=== PATIENT | male | born 1970 | race Caucasian/White ===

== ENCOUNTER 2022-01-03 04:52 | Inpatient (IN) ==
[2022-01-03 05:21] LABS: Hematocrit (blood only) 49.3 % (40.1-51.0); Hemoglobin 16.4 g/dl (14.0-18.0); Mean Corpuscular Hemoglobin 22.7 pg (25.0-34.0); Mean Corpuscular Hgb Conc 33.3 g/dL (32.0-36.0); Mean Corpuscular Volume 68.1 fL (80.0-100.0); RDW Coefficient of Variation 18.1 % (11.5-14.5); RDW Standard Deviation 37.8 fL (36.4-46.3); Red Blood Count 7.24 M/uL (4.63-6.08); White Blood Count 23.39 K/ul (4.8-10.8)
[2022-01-03] MEDS ORDERED: SODIUM CHLORIDE 0.9% 1000ML 1,000 ML IV ONE (05:26)
--- NOTE | 2022-01-03 05:26 | Emergency Department Note ---
History of Present Illness General Chief complaint: Abdominal Pain Stated complaint: LWR ABD PAIN, VOMITING Time Seen by Provider: 01/03/22 04:57 History of Present Illness Maximum Pain Intensity: 9 51-year-old male presents emergency department with a approximate 5-day history of intermittent lower quadrant suprapubic abdominal pain. Patient states that last evening the pain worsened in the left lower quadrant and the suprapubic region. Patient states that the pain was moderate nonradiating no associated nausea vomiting or diarrhea. No hematuria no urinary symptoms. Patient does have a remote history approximately 10 years ago of a perforated diverticular abscess with surgery and colostomy placement. Patient denies flank pain. Patient denies fever. There are no other mitigating or alleviating factors; patient is currently at [facility] for alcohol rehab and was supposed to be discharged today Home Medications Medication Instructions Recorded Confirmed Type acamprosate 333 mg tablet,delayed 666 mg PO TID 01/03/22 01/03/22 History release buprenorphine 8 mg-naloxone 2 mg 1 tab sublingual DAILY 01/03/22 01/03/22 History sublingual tablet buspirone 5 mg tablet 5 mg PO TID 01/03/22 01/03/22 History cyproheptadine 4 mg tablet 4 mg PO Q6H PRN Itching 01/03/22 01/03/22 History hydroxyzine HCl 50 mg tablet 50 mg PO Q6H PRN Itching 01/03/22 01/03/22 History loratadine 10 mg capsule 10 mg PO DAILY 01/03/22 01/03/22 History melatonin 10 mg tablet 10 mg PO HS PRN Sleep 01/03/22 01/03/22 History metoprolol succinate 50 mg 50 mg PO DAILY 01/03/22 01/03/22 History tablet,extended release 24 hr multivitamin 1 tab PO DAILY 01/03/22 01/03/22 History omeprazole 20 mg capsule,delayed 20 mg PO DAILY 01/03/22 01/03/22 History release Allergies Allergy/AdvReac Type Severity Reaction Status Date / Time No Known Allergies Allergy Unverified 01/03/22 10:29 Past Med/Surg History Medical History (Updated 01/03/22 @ 10:07 by Lisette Bowles PA-C) Alcohol abuse History of substance abuse MDD (major depressive disorder) Surgical History History of partial surgical removal of colon 2009 or 2011 Family History Other Hypertension Social History Smoking Status: Current every day smoker Tobacco Type: Cigarettes Second Hand Exposure: No; Do You Dip or Chew Tobacco: No; Tobacco Cessation Education Requested by Patient: No Hx Alcohol Use: Yes Alcohol type: beer, wine and hard liquor Hx Substance Use: Yes Last Used Substance Other:: more than a decade ago Preferred Language: Portuguese Communication Ability: Effective Bleach Boiler Puller Required: No Beliefs That Will Affect Care: None Current Living Situation: Alone Other Information That Helps Us Care for You: No Feels Safe at Home: Yes Assistive Devices: None Immunizations: Past medical history diverticulitis, past surgical history diverticular abscess and diverticulitis with perforation, colostomy Review of Systems A total of 10 systems reviewed and were otherwise negative Constitutional: no fever Respiratory: no cough Cardiovascular: no chest pain Gastrointestinal: + abdominal pain Genitourinary (Male): no dysuria Physical Exam Vital Signs Vital Signs - 24 hr 01/03/22 04:58 01/03/22 05:32 01/03/22 05:32 Temperature 36.8 C Temperature Source Temporal Artery Scan Pulse Rate 84 78 Pulse Rate [Apical] 77 Pulse Rate from SpO2 Sensor Respiratory Rate 18 18 Respiratory Effort / Characteristics Non-Labored Respiratory Depth Normal Blood Pressure 131/98 Blood Pressure [Left Arm] 141/107 H Blood Pressure Mean 109 Blood Pressure Mean [Left Arm] 118 Blood Pressure Position [Left Arm] Semi-fowlers Pulse Oximetry 100 100 100 Oxygen Delivery Method Room Air Room Air Room Air Sepsis Recent Fever Within 48 Hours No Sepsis New/Unexplained Change in Mental Status N/A Sepsis Action Taken by Nursing No Action Required 01/03/22 07:00 01/03/22 07:00 01/03/22 09:45 Temperature Temperature Source Pulse Rate 67 Pulse Rate [Apical] Pulse Rate from SpO2 Sensor Respiratory Rate 21 Respiratory Effort / Characteristics Respiratory Depth Blood Pressure 158/103 H 162/102 H Blood Pressure [Left Arm] Blood Pressure Mean 121 122 Blood Pressure Mean [Left Arm] Blood Pressure Position [Left Arm] Pulse Oximetry 98 Oxygen Delivery Method Room Air Sepsis Recent Fever Within 48 Hours Sepsis New/Unexplained Change in Mental Status Sepsis Action Taken by Nursing 01/03/22 09:45 01/03/22 10:00 01/03/22 10:00 Temperature Temperature Source Pulse Rate 67 Pulse Rate [Apical] Pulse Rate from SpO2 Sensor 76 Respiratory Rate 24 Respiratory Effort / Characteristics Respiratory Depth Blood Pressure 142/88 H Blood Pressure [Left Arm] Blood Pressure Mean 106 Blood Pressure Mean [Left Arm] Blood Pressure Position [Left Arm] Pulse Oximetry 98 98 Oxygen Delivery Method Room Air Room Air Sepsis Recent Fever Within 48 Hours Sepsis New/Unexplained Change in Mental Status Sepsis Action Taken by Nursing GENERAL: Patient is awake alert in no acute distress patient is resting comfortably and showing no signs of anxiety EYES: The conjunctivae are clear. The pupils are round and reactive. EARS, NOSE, MOUTH AND THROAT: The nose is without any evidence of any deformity. Mucous membranes are moist. Tongue is midline. NECK: The neck is nontender and supple. RESPIRATORY: Normal respiratory effort is noted there is no evidence of wheezing rhonchi or rales CARDIOVASCULAR: Regular rate and rhythm noted there no murmurs rubs or gallops normal S1 normal S2. GASTROINTESTINAL: The abdomen is soft. Abdomen is mildly tender in the suprapubic region no tenderness in the upper quadrants there is no rebound rigidity or guarding PELVIS: The Pelvis is stable. No tenderness to palpation is noted. BACK: No midline tenderness or or step-off noted range of motion in flexion e xtension as well as rotation no signs of muscle spasm noted MUSCULOSKELETAL/EXTREMITIES: There is no evidence of gross deformity full range of motion is noted in the hips and shoulders. SKIN: There is no obvious evidence of any rash. There are no petechiae, pallor or cyanosis noted. NEUROLOGIC: Patient is awake alert and oriented x3 strength is symmetric Course Reevaluation(s) Reevaluation #1: Repeat examination, the patient states that he has severe heartburn and abdominal pain. Patient denies significant chest pain however. Patient also states that he had [place] approximately 10 [place] [facility] [facility] Time: 05:39 Reevaluation #2: Resting in no distress Time: 06:21 Reevaluation #3: 700am - case turned over pending CT read and dispo to my colleague Dr Pheasant Time: 07:00 Administered Medications Diphenhydramine HCl (Diphenhydramine 50 Mg/Ml Vial) 25 mg IV HS PRN PRN Reason: insommia Stop: 02/02/22 18:41 Last Admin: 01/03/22 20:00 Dose: 25 mg Documented By: EW Sodium Chloride (Nss 1000ml) 1,000 mls @ 125 mls/hr IV .Q8H SARAH Stop: 02/02/22 13:52 Last Admin: 01/03/22 16:58 Dose: 125 mls/hr Documented By: MEMO Discontinued Medications Buprenorphine/Naloxone (Buprenorphine/Naloxone 8/2 Mg Tab) 1 tab SL ONE ONE Stop: 01/03/22 12:42 Last Admin: 01/03/22 13:00 Dose: 1 tab Documented By: ALVIN Famotidine (Famotidine 20mg/5ml Iv Push) Confirm Administered Dose 20 mg IV .STK-MED ONE Stop: 01/03/22 05:39 Last Admin: 01/03/22 05:41 Dose: Not Given Documented By: EVAN Fentanyl Citrate (Fentanyl Citrate 100 Mcg/2 Ml Vial) 50 mcg IV Q15M PRN PRN Reason: Pain Stop: 01/17/22 08:48 Last Admin: 01/03/22 09:45 Dose: 50 mcg Documented By: ALVIN Sodium Chloride (Nss 1000ml) 1,000 mls @ 999 mls/hr IV .Q1H1M ONE Stop: 01/03/22 06:26 Last Infusion: 01/03/22 06:42 Dose: 0 mls/hr Documented By: Admin: 01/03/22 05:41 Dose: 999 mls/hr Documented By: EVAN Famotidine 20 mg/ Syringe 5 mls @ 2.5 mls/min IV NOW ONE Stop: 01/03/22 05:38 Last Admin: 01/03/22 05:41 Dose: 2.5 mls/min Documented By: EVAN Sodium Chloride (Nss 1000ml) 1,000 mls @ 125 mls/hr IV .Q8H [facility] Stop: 02/02/22 08:44 Last Admin: 01/03/22 16:59 Dose: Not Given Documented By: Infusion: 01/03/22 16:27 Dose: 125 mls/hr Documented By: Admin: 01/03/22 08:46 Dose: 125 mls/hr Documented By: ALVIN Acetaminophen (Ofirmev) 1,000 mg in 100 mls @ 400 mls/hr IV NOW STA Stop: 01/03/22 08:51 Last Infusion: 01/03/22 09:01 Dose: 0 mls/hr Documented By: Admin: 01/03/22 08:46 Dose: 400 mls/hr Documented By: ALVIN Ketorolac Tromethamine (Ketorolac 30 Mg/Ml Vial) 30 mg IV NOW STA Stop: 01/03/22 05:38 Last Admin: 01/03/22 05:41 Dose: 30 mg Documented By: EVAN Lorazepam (Lorazepam 1 Mg/1 Ml Syr) 1 mg IV NOW ONE; Protocol Stop: 01/03/22 10:37 Last Admin: 01/03/22 11:04 Dose: 1 mg Documented By: ALVIN Lorazepam (Lorazepam 1 Mg/1 Ml Syr) 1 mg IV NOW STA; Protocol Stop: 01/03/22 12:42 Last Admin: 01/03/22 13:53 Dose: 1 mg Documented By: ALVIN Lorazepam (Lorazepam 1 Mg Tab) 0.25 mg SL NOW STA Stop: 01/03/22 20:49 Last Admin: 01/03/22 21:34 Dose: 0.25 mg Documented By: MYRON Nicotine (Nicotine 21 Mg/24 Hr Tdsy) Confirm Administered Dose 21 mg TD .STK-MED ONE Stop: 01/03/22 13:00 Last Admin: 01/03/22 13:02 Dose: 21 mg Documented By: ALVIN Ondansetron HCl (Ondansetron Inj 2 Mg/Ml 2 Ml Vial) 4 mg IV NOW STA Stop: 01/03/22 08:37 Last Admin: 01/03/22 08:45 Dose: 4 mg Documented By: ALVIN Medical Decision Making Medical Records Attestation: I reviewed the patient's medical records. Home Medications Current Medication List: was personally reviewed by me Laboratory Data Attestation: I reviewed the patient's lab results. Patient has leukocytosis concern is for inflammation or infection Result diagrams: 01/03/22 05:12 01/03/22 18:16 Lab Results 01/03/22 01/03/22 01/03/22 Range/Units 05:12 05:12 07:18 WBC 23.39 H (4.8-10.8) K/ul RBC 7.24 H (4.63-6.08) M/uL Hgb 16.4 (14.0-18.0) g/dl Hct 49.3 (40.1-51.0) % MCV 68.1 L (80.0-100.0) fL MCH 22.7 L (25.0-34.0) pg MCHC 33.3 (32.0-36.0) g/dL RDW Std Deviation 37.8 (36.4-46.3) fL RDW Coeff of Joey 18.1 H (11.5-14.5) % Plt Count 269 (130-400) K/uL Immature Gran % (Auto) 0.6 % Neut % (Auto) 87.7 % Lymph % (Auto) 8.4 % Wise % (Auto) 2.9 % Eos % (Auto) 0.1 % Baso % (Auto) 0.3 % Neut # (Auto) 20.51 H (1.4-6.5) K/uL Lymph # (Auto) 1.96 (1.2-3.4) K/uL Wise # (Auto) 0.69 (0.24-0.82) K/uL Eos # (Auto) 0.03 (0-0.50) K/uL Baso # (Auto) 0.07 (0-0.2) K/uL Immature Gran # (Auto) 0.13 H (0.00-0.02) K/uL Microcytosis Present Ovalocytes 2+ Echinocytes 1+ Sodium 137 (136-145) mmol/L Potassium 4.2 (3.5-5.1) mmol/L Chloride 96 L (98-107) mmol/L Carbon Dioxide 26 (21-32) mmol/L Anion Gap 15 H (3-11) BUN 20 (6-23) mg/dl Creatinine 1.40 (0.6-1.4) mg/dl Est Cr Clr Drug Dosing 61.7 ml/min Est GFR ( Amer) 66.5 ml/min Est GFR (Non-Af Amer) 57.4 ml/min BUN/Creatinine Ratio 14.3 (10-20) Glucose 155 H (70-99(Fasting)) mg/dl Calcium 11.8 H (8.5-10.1) mg/dl Total Bilirubin 1.0 (0.2-1.0) mg/dl AST 16 (13-39) U/L ALT 12 (7-52) U/L Alkaline Phosphatase 35 (34-104) U/L Total Protein 8.6 H (6.0-8.3) gm/dl Albumin 5.4 H (3.4-5.0) gm/dl Globulin 3.2 (2.5-4.0) gm/dl Albumin/Globulin Ratio 1.7 (0.9-2) Lipase 24 (11-82) U/L Urine Color Dark Yellow Urine Appearance Clear (Clear) Urine pH 5.5 (4.5-7.5) Ur Specific [place] 1.043 H (1.000-1.030) Urine Protein 1+ H (Negative) Urine Glucose (UA) Negative (Negative) Urine Ketones 1+ H (Negative) Urine Blood Negative (Negative) Urine Nitrite Negative (Negative) Urine Bilirubin 1+ H (Negative) Urine Urobilinogen Negative (Negative) Ur Leukocyte Esterase Trace H (Negative) Urine WBC (Auto) 5-10 H (0-5) /hpf Urine RBC (Auto) 0-4 (0-4) /hpf U Hyaline Cast (Auto) >30 H (0-5) /lpf U Epithel Cells (Auto) >30 H (0-5) /lpf Urine Bacteria (Auto) 1+ H (Negative) Ur Renal Epithelial Cell Not Reportable Urine Mucus Present A (None Prsent) MDM Narrative Medical decision making differential diagnosis includes diverticulitis diverticular abscess bowel obstruction urinary tract infection ureterolithiasis gastroenteritis. Plan is to check labs, CT, give IV fluids, observe Impression & Plan Abdominal pain Discharge Plan Visit Data Chief Complaint: Abdominal Pain Stated Complaint: LWR ABD PAIN, VOMITING ED Provider: Ole Martinez Discharge Problem: Abdominal pain Patient Disposition: Admitted As Inpatient Discharge Instructions Interventions: ED Discharge Assessment Last Done: 01/03/22 13:54
[2022-01-03] MEDS ORDERED: FAMOTIDINE 20 MG in SYRINGE 3 ML IV ONE (05:37)
[2022-01-03] MEDS ORDERED: KETOROLAC 30 MG/ML VIAL IV STA (05:37)
[2022-01-03] MEDS ORDERED: FAMOTIDINE 20MG/5ML IV PUSH IV ONE (05:38)
[2022-01-03 05:43] LABS: Albumin Globulin Ratio 1.7 (0.9-2); Albumin Level 5.4 gm/dl (3.4-5.0); BUN Creatinine Ratio 14.3 (10-20); Calcium 11.8 mg/dl (8.5-10.1); Creatinine Clr Calc Pharmacy 61.7 ml/min; Est GFR (African American) 66.5 ml/min; Est GFR (Non-African American) 57.4 ml/min; Globulin 3.2 gm/dl (2.5-4.0); Potassium 4.2 mmol/L (3.5-5.1); Total Protein 8.6 gm/dl (6.0-8.3)
[2022-01-03 06:41] LABS: Basophils # (auto) 0.07 K/uL (0-0.2); Basophils % (auto) 0.3 %; Echinocytes 1+; Eosinophils # (auto) 0.03 K/uL (0-0.50); Eosinophils % (auto) 0.1 %; Immature Granulocytes # (auto) 0.13 K/uL (0.00-0.02); Immature Granulocytes % (auto) 0.6 %; Lymphocytes # (auto) 1.96 K/uL (1.2-3.4); Lymphocytes % (auto) 8.4 %; Microcytosis Present; Monocytes # (auto) 0.69 K/uL (0.24-0.82); Monocytes % (auto) 2.9 %; Neutrophils # (auto) 20.51 K/uL (1.4-6.5); Neutrophils % (auto) 87.7 %; Ovalocytes 2+; Platelet Count 269 K/uL (130-400)
[2022-01-03 07:39] LABS: Appearance Urine Clear (Clear); Blood Urine Negative (Negative); Color Urine Dark Yellow; Epithelial Cell Urine Auto >30 /lpf (0-5); Glucose Urine UA Negative (Negative); Ketones Urine 1+ (Negative); Leukocyte Esterase Urine Trace (Negative); Nitrite Urine Negative (Negative); Protein Urine 1+ (Negative); RBC Urine Automated 0-4 /hpf (0-4); Specific Gravity Urine 1.043 (1.000-1.030); Urobilinogen Urine Negative (Negative); pH Urine 5.5 (4.5-7.5)
[2022-01-03 08:01] LABS: Bilirubin Urine 1+ (Negative)
[2022-01-03 08:09] LABS: Cast Urine Automated >30 /lpf (0-5); Mucus Urine Present (None Prsent)
[2022-01-03 08:10] LABS: Bacteria Urine Automated 1+ (Negative)
--- NOTE | 2022-01-03 08:17 | CT Scan Report ---
ABDOMEN AND PELVIS CT WITHOUT CONTRAST CT DOSE: 882.06 mGy.cm HISTORY: Mid abdominal pain. TECHNIQUE: Multiaxial CT images of the abdomen and pelvis were performed without contrast. A dose lo wering technique was utilized adhering to the principles of ALARA. COMPARISON STUDY: None. FINDINGS: No pneumoperitoneum. No pneumatosis. There are 2 small fat-containing ventral hernias. Ther e is a 1.4 cm hypodense lesion within the right hepatic lobe. This is incompletely characterized on t his noncontrast study but favors a cyst. There is a punctate gallstone. No gallbladder wall thickenin g. The unenhanced spleen, pancreas, and adrenal glands are unremarkable. No renal or ureteral stones. No hydronephrosis. No retroperitoneal lymphadenopathy. Normal caliber abdominal aorta. Trace pelvic free fluid. Mild bladder wall thickening is likely due to underdistention. Surgical clips noted withi n the pelvis. Prior anastomosis within the hepatic flexure of the colon. Distended and fluid-filled s tomach as well as multiple distended and fluid-filled loops of proximal to mid small bowel with a tra nsition point within the deep pelvis likely on image 373. This consistent with a high-grade small bow el obstruction. The majority of the ileal loops are decompressed. IMPRESSION: 1. High-grade small bowel structure with the transition point located within the deep pelvis. This is likely on the basis of adhesions. Surgical consultation advised. 2. Mild bladder wall thickening. 3. Cholelithiasis. ACT 112: Negative or not required by law. Electronically signed by: Brannon Kincaid M.D. 01/03/2022 8:15 AM
[2022-01-03] MEDS ORDERED: ONDANSETRON INJ 2 MG/ML 2 ML VIAL IV STA (08:36)
[2022-01-03] MEDS ORDERED: ACETAMINOPHEN 1,000 MG/100 ML VIAL IV STA (08:37)
[2022-01-03] MEDS: SODIUM CHLORIDE 0.9% 1000ML 1,000 ML IV SCH ×5 (08:46→16:59)
[2022-01-03] MEDS ORDERED: fentaNYL citrate 100 MCG/2 ML VIAL IV PRN (08:49)
--- NOTE | 2022-01-03 08:49 | Emergency Department Note ---
ED Visit Note Patient signed out to me at change of shift from Dr. Martinez awaiting CT results. CT revealed high-grade small bowel obstruction with transition point located deep within the pelvis. I did discuss these results with the patient at bedside. He has continued to have nausea and vomiting. Case discussed with Deloris Gonzalez PA-C with general surgery. She will come and evaluate the patient, agrees with plan for NG tube placement. COVID swab added. Patient was evaluated by general surgery who requested medicine to admit and they will consult. [facility] who also discussed the case with general surgery. .
--- NOTE | 2022-01-03 09:42 | Surgery Consultation ---
Date of Consultation January 03, 2022 Assessment & Plan (1) SBO (small bowel obstruction): This is a 51y M with a PMH of alcohol abuse (currently in rehab), on Suboxone, HTN, multiple abdominal surgeries who presented to the [facility] on 01/03/22 with complaints of abdominal pain, nausea/vomiting that started 5 days ago but worsened in severity as of yesterday. A CT a/p has been obtained that revealed a high-grade small bowel obstruction with the transition point located within the deep pelvis. This is likely on the basis of adhesions. Patient has a prior abdominal surgical history stating diverticulitis with abscess requiring ostomy, reversal, removal of bladder tumors (which he says were benign), and abdominal hernia repairs. Currently patient's vital signs are stable, HR 70's. On exam patient's abdomen is soft, not distended, with tenderness to palpation mostly in the LLQ. He was vomiting while I was in the room during my examination. At this time we recommend a trial of conservative management, NPO with NGT placement for bowel rest. We appreciate hospitalists assistance with this patient. We will continue to follow closely. Supervising Physician Co-Signing Physician Notes Patient seen and examined, labs and imaging reviewed, agree with above. 51-year-old male with multiple prior abdominal surgeries presented from rehab with abdominal pain. On exam he is afebrile stable vitals. Abdomen is soft, nontender, moderately distended. NG tube in place. WBC 23. CT personally viewed and interpreted and shows a bowel obstruction with transition point in the pelvis or right lower quadrant. There is no evidence of ischemia or threatened bowel. Recommend nonoperative management for now, will continue NG tube to low intermittent wall suction. Repeat KUB in the morning. Trend labs. History of Present Illness History of Present Illness This is a 51y M with a PMH of alcohol abuse (currently in rehab), on Suboxone, HTN, multiple abdominal surgeries who presented to the [facility] on 01/03/22 with complaints of abdominal pain, nausea/vomiting. Patient is currently in alcohol rehab (last drink was 31 days ago). He reports developing abdominal pain ~5 days ago that he said was intermittent lasting only 5-15 minutes at a time and would go away. Starting yesterday the pain came back in worsened severity and remained constant. This was associated with nausea and multiple bouts of emesis. He says the pain was so bad he could barely breath or get comfortable. He also reports severe heart burn with this. Pain rated a 10/10. Due to his symptoms he reports to the ER for workup. A CT a/p has been obtained that revealed a high-grade small bowel obstruction with the transition point located within the deep pelvis. This is likely on the basis of adhesions. Patient has a prior abdominal surgical history stating diverticulitis with abscess requiring ostomy, reversal, removal of bladder tumors (which he says are benign), and abdominal hernia repairs. He is unsure if he ever had a colonoscopy. Last BM yesterday. Last had anything to eat yesterday morning. Allergies Allergy/AdvReac Type Severity Reaction Status Date / Time No Known Allergies Allergy Unverified 01/03/22 10:29 Home Medications Medication Instructions Recorded Confirmed Type acamprosate 333 mg tablet,delayed 666 mg PO TID 01/03/22 01/03/22 History release buprenorphine 8 mg-naloxone 2 mg 1 tab sublingual DAILY 01/03/22 01/03/22 History sublingual tablet buspirone 5 mg tablet 5 mg PO TID 01/03/22 01/03/22 History cyproheptadine 4 mg tablet 4 mg PO Q6H PRN Itching 01/03/22 01/03/22 History hydroxyzine HCl 50 mg tablet 50 mg PO Q6H PRN Itching 01/03/22 01/03/22 History loratadine 10 mg capsule 10 mg PO DAILY 01/03/22 01/03/22 History melatonin 10 mg tablet 10 mg PO HS PRN Sleep 01/03/22 01/03/22 History metoprolol succinate 50 mg 50 mg PO DAILY 01/03/22 01/03/22 History tablet,extended release 24 hr multivitamin 1 tab PO DAILY 01/03/22 01/03/22 History omeprazole 20 mg capsule,delayed 20 mg PO DAILY 01/03/22 01/03/22 History release Patient History Medical History (Updated 01/03/22 @ 10:07 by Lisette Bowles PA-C) Alcohol abuse History of substance abuse MDD (major depressive disorder) Surgical History History of partial surgical removal of colon 2009 or 2011 Family History Other Hypertension Social History Smoking Status: Current every day smoker Tobacco Type: Cigarettes Feels Safe at Home: Yes Review of Systems Constitutional: + chills and + sweats; no fever Respiratory: some shortness of breath Gastrointestinal: + abdominal pain, + heartburn, + nausea and + vomiting; no bloating and no hematemesis Physical Exam Physical Exam: awake/alert Respiratory: normal respiratory effort Gastrointestinal (Abdomen): Inspection/Auscultation: + abdominal surgical scar (low midline scar); abdomen not distended Percussion/Palpation: + abdomen tender (ttp around left lower abdomen ) and abdomen soft Results & Data ([facility]) Vital Signs (Past 12 Hours) Vital Signs Temp Pulse Pulse Resp BP BP Pulse Ox 01/03/22 05:32 77 18 141/107 H 100 01/03/22 05:32 78 100 01/03/22 04:58 36.8 C 84 18 131/98 100 O2 Del Method 01/03/22 05:32 Room Air 01/03/22 05:32 Room Air 01/03/22 04:58 Room Air Diagnostic Findings ABDOMEN AND PELVIS CT WITHOUT CONTRAST CT DOSE: 882.06 mGy.cm HISTORY: Mid abdominal pain. TECHNIQUE: Multiaxial CT images of the abdomen and pelvis were performed without contrast. A dose lowering technique was utilized adhering to the principles of ALARA. COMPARISON STUDY: None. FINDINGS: No pneumoperitoneum. No pneumatosis. There are 2 small fat-containing ventral hernias. There is a 1.4 cm hypodense lesion within the right hepatic lobe. This is incompletely characterized on this noncontrast study but favors a cyst. There is a punctate gallstone. No gallbladder wall thickening. The unenhanced spleen, pancreas, and adrenal glands are unremarkable. No renal or ureteral stones. No hydronephrosis. No retroperitoneal lymphadenopathy. Normal caliber abdominal aorta. Trace pelvic free fluid. Mild bladder wall thickening is likely due to underdistention. Surgical clips noted within the pelvis. Prior anastomosis within the hepatic flexure of the colon. Distended and fluid-filled stomach as well as multiple distended and fluid-filled loops of proximal to mid small bowel with a transition point within the deep pelvis likely on image 373. This consistent with a high-grade small bowel obstruction. The majority of the ileal loops are decompressed. IMPRESSION: 1. High-grade small bowel structure with the transition point located within the deep pelvis. This is likely on the basis of adhesions. Surgical consultation advised. 2. Mild bladder wall thickening. 3. Cholelithiasis. ACT 112: Negative or not required by law. Electronically signed by: Brannon Kincaid M.D. 01/03/2022 8:15 AM PG Care Time/CCT Total # of Minutes Spent Total Time Spent with Patient: Total time spent is greater than 50% in coordination of care (as documented) at patient's floor/unit and/or counseling patient: Coding Level of Care Code 18728 Inpt Consult Level 2 Diagnoses SBO (small bowel obstruction) K56.609
--- NOTE | 2022-01-03 10:09 | History & Physical Report ---
Date of Service January 03, 2022 Assessment & Plan (1) SBO (small bowel obstruction): Plan: -Admit to [facility] -Consult general surgery, Dr. George: No plans for surgical intervention at this time, strict n.p.o., NG tube being placed by nursing staff in the ER curre ntly -Continue NSS at 125 mL/h, 2 L in so far, appears to be dehydrated on exam and lab work reveals such as well. Elevated calcium at 11 likely related to dehydration. Checking EKG now. Hgb/Hct appears to be hemoconcentrated. -Allow 1 mg IV Ativan for placement of the NG tube due to anxiety -We will convert home medications to IV (2) MDD (major depressive disorder): (3) Alcohol abuse, in remission: (4) Opioid dependence on agonist therapy: Plan: - Resume acaprosate calc 333 mg, chemix po 2 cap QHS, buspar 5 mg PO TID, WHEN ALLOWED PO MEDS - Pharmacy to assist with Suboxone treatment, 8-2 mg film, patient reports not taking it today - discussed with pharmacy, only sublingual tablet available here and not the film, will transition to sublingual tablet while here. - Was scheduled to be discharged from [facility] in alcohol rehab today -pt is requesting his phone & pharmacy teacher from there - Discussion with pt's brother, Freddy, was held via phone call at 11:25 am. He was updated and all his questions and concerns were addressed. He thinks surgery with colon was about 12-14 years ago. (5) HTN (hypertension): Plan: - At home takes metoprolol succinate 50 mg daily, holding with strict n.p.o. for now, convert to IV medication, currently not hypertensive DVT ppx: - pa venturas CODE: Full code Dispo: From home, likely to remain in the hospital x 1-2 days History of Present Illness Chief Complaint: Abdominal Pain Primary Care Provider: NO PCP This is a 51-year-old M with PMHx of alcohol abuse, depression, opioid dependence, MDD, substance use disorder with cocaine on Suboxone, hypertension, DM type II. He has undergone partial removal of the colon secondary to diverticulitis with abscess about 12+ years ago by surgeon in the [place] region. Pt presents with acute new onset abdominal pain which began 5-7 days ago and felt the pain would last for 15 minutes, and then subsided. But then 2 days ago his abdominal pain started being constant, cramping, stabbing in nature. He attempted to walk/move but could not alleviate it. He is currently on Suboxone therapy and was at [facility] for alcohol rehab program for the past 21 days, and was scheduled to be discharged home today. He began throwing up yesterday and has multiple this morning. Emesis appears to be green/brown in nature. Pt is on campril for alcohol cravings/suppression, and this causes gas per his report but states he is no longer passing flatus. Last BM was yesterday morning ago and was normal. Pt was not able to tolerate the first attempt to place an NG tube. He is agreeable to trying again with some sort of sedation. We discussed that he would not be placed under anesthesia and the risks and benefits were discussed with him. Will allow Ativan 1 mg IV to relax him, with the expectation that he is awake enough to help swallow the tube and get it in correct placement in the stomach. Patient is requesting that we call his brother as he is expecting him to be home around 9 PM tonight, and does not yet know that he has been admitted as his cell phone was left at [facility] upon transfer here. Allergies Allergy/AdvReac Type Severity Reaction Status Date / Time No Known Allergies Allergy Unverified 01/03/22 10:29 Home Medications Medication Instructions Recorded Confirmed Type acamprosate 333 mg tablet,delayed 666 mg PO TID 01/03/22 01/03/22 History release buprenorphine 8 mg-naloxone 2 mg 1 tab sublingual DAILY 01/03/22 01/03/22 History sublingual tablet buspirone 5 mg tablet 5 mg PO TID 01/03/22 01/03/22 History cyproheptadine 4 mg tablet 4 mg PO Q6H PRN Itching 01/03/22 01/03/22 History hydroxyzine HCl 50 mg tablet 50 mg PO Q6H PRN Itching 01/03/22 01/03/22 History loratadine 10 mg capsule 10 mg PO DAILY 01/03/22 01/03/22 History melatonin 10 mg tablet 10 mg PO HS PRN Sleep 01/03/22 01/03/22 History metoprolol succinate 50 mg 50 mg PO DAILY 01/03/22 01/03/22 History tablet,extended release 24 hr multivitamin 1 tab PO DAILY 01/03/22 01/03/22 History omeprazole 20 mg capsule,delayed 20 mg PO DAILY 01/03/22 01/03/22 History release Past Med/Surg History Medical History (Updated 01/03/22 @ 10:07 by Lisette Sidhu PA-C) Alcohol abuse History of substance abuse MDD (major depressive disorder) Surgical History History of partial surgical removal of colon 2009 or 2011 Family History Other Hypertension Social History Smoking Status: Current every day smoker Tobacco Type: Cigarettes Feels Safe at Home: Yes Review of Systems Review of Systems: Constitutional: No fever, sweats or chills Eyes: No diplopia, no worsening or blurred vision ENT: normal hearing, no trouble swallowing Respiratory: No cough, sputum, dyspnea at rest or on exertion Cardiovascular: No chest pain, tightness or palpitations Abdomen: + abdominal pain, + nausea, + vomiting, no diarrhea or constipation, Last BM 2 days ago Musculoskeletal: No joint pain, calf pain, swelling Neurologic: No weakness, numbness/tingling, or balance problems Psychiatric:+ alcohol hx, opiod dependence, hx of depression on medication Skin: No rash or itch Physical Exam Physical Exam: General: awake, alert, no apparent distress Head: Normocephalic, atraumatic ENT: PERRL, EOMI, no pharyngeal exudate, mucous membranes moist Chest: Clear to auscultation, on room air, no adventitious breath sounds Cardiac: Regular rate and rhythm, no murmur, no JVD, normal peripheral pulses, good capillary refill Abdominal: NABS x 4 quadrants, soft, nondistended, nontender to palpation, no rebound or guarding Extremities: Normal inspection, no peripheral edema or erythema, calfs nontender to palpation Psych: Normal mood and affect Neuro: AAO x 3, strength intact bilaterally and rated 5/5, no motor deficits, speech is clear, no peripheral sensory deficits Results & Data Results & Data ([facility]) Vital Signs (Past 12 Hours) Vital Signs Temp Pulse Pulse Resp BP BP Pulse Ox 01/03/22 05:32 77 18 141/107 H 100 01/03/22 05:32 78 100 01/03/22 04:58 36.8 C 84 18 131/98 100 O2 Del Method 01/03/22 05:32 Room Air 01/03/22 05:32 Room Air 01/03/22 04:58 Room Air Laboratory Results 01/03/22 07:18 Urine Culture - Pending Urine,Clean Catch 01/03/22 01/03/22 01/03/22 Unknown 07:18 05:12 WBC RBC Hgb Hct MCV MCH MCHC RDW Std Deviation RDW Coeff of Joey Plt Count Immature Gran % (Auto) Neut % (Auto) Lymph % (Auto) Jefferson % (Auto) Eos % (Auto) Baso % (Auto) Neut # (Auto) Lymph # (Auto) Jefferson # (Auto) Eos # (Auto) Baso # (Auto) Immature Gran # (Auto) Microcytosis Ovalocytes Echinocytes Sodium 137 Potassium 4.2 Chloride 96 L Carbon Dioxide 26 Anion Gap 15 H BUN 20 Creatinine 1.40 Est Cr Clr Drug Dosing 61.7 Est GFR ( Amer) 66.5 Est GFR (Non-Af Amer) 57.4 BUN/Creatinine Ratio 14.3 Glucose 155 H Calcium 11.8 H Total Bilirubin 1.0 AST 16 ALT 12 Alkaline Phosphatase 35 Total Protein 8.6 H Albumin 5.4 H Globulin 3.2 Albumin/Globulin Ratio 1.7 Lipase 24 Urine Color Dark Yellow Urine Appearance Clear Urine pH 5.5 Ur Specific Dunlevy 1.043 H Urine Protein 1+ H Urine Glucose (UA) Negative Urine Ketones 1+ H Urine Blood Negative Urine Nitrite Negative Urine Bilirubin 1+ H Urine Urobilinogen Negative Ur Leukocyte Esterase Trace H Urine WBC (Auto) 5-10 H Urine RBC (Auto) 0-4 U Hyaline Cast (Auto) >30 H U Epithel Cells (Auto) >30 H Urine Bacteria (Auto) 1+ H Ur Renal Epithelial Cell Not Reportable Urine Mucus Present A SARS-CoV-2, RNA, NAAT NEGATIVE 01/03/22 05:12 WBC 23.39 H RBC 7.24 H Hgb 16.4 Hct 49.3 MCV 68.1 L MCH 22.7 L MCHC 33.3 RDW Std Deviation 37.8 RDW Coeff of Joey 18.1 H Plt Count 269 Immature Gran % (Auto) 0.6 Neut % (Auto) 87.7 Lymph % (Auto) 8.4 Jefferson % (Auto) 2.9 Eos % (Auto) 0.1 Baso % (Auto) 0.3 Neut # (Auto) 20.51 H Lymph # (Auto) 1.96 Jefferson # (Auto) 0.69 Eos # (Auto) 0.03 Baso # (Auto) 0.07 Immature Gran # (Auto) 0.13 H Microcytosis Present Ovalocytes 2+ Echinocytes 1+ Sodium Potassium Chloride Carbon Dioxide Anion Gap BUN Creatinine Est Cr Clr Drug Dosing Est GFR ( Amer) Est GFR (Non-Af Amer) BUN/Creatinine Ratio Glucose Calcium Total Bilirubin AST ALT Alkaline Phosphatase Total Protein Albumin Globulin Albumin/Globulin Ratio Lipase Urine Color Urine Appearance Urine pH Ur Specific Dunlevy Urine Protein Urine Glucose (UA) Urine Ketones Urine Blood Urine Nitrite Urine Bilirubin Urine Urobilinogen Ur Leukocyte Esterase Urine WBC (Auto) Urine RBC (Auto) U Hyaline Cast (Auto) U Epithel Cells (Auto) Urine Bacteria (Auto) Ur Renal Epithelial Cell Urine Mucus SARS-CoV-2, RNA, NAAT Diagnostic Findings Abdomen/Pelvis CT 01/03/22 04:[address] WITHOUT CONTRAST CT DOSE: 882.06 mGy.cm HISTORY: Mid abdominal pain. TECHNIQUE: Multiaxial CT images of the abdomen and pelvis were performed without contrast. A dose lowering technique was utilized adhering to the principles of ALARA. COMPARISON STUDY: None. FINDINGS: No pneumoperitoneum. No pneumatosis. There are 2 small fat-containing ventral hernias. There is a 1.4 cm hypodense lesion within the right hepatic lobe. This is incompletely characterized on this noncontrast study but favors a cyst. There is a punctate gallstone. No gallbladder wall thickening. The unenhanced spleen, pancreas, and adrenal glands are unremarkable. No renal or ureteral stones. No hydronephrosis. No retroperitoneal lymphadenopathy. Normal caliber abdominal aorta. Trace pelvic free fluid. Mild bladder wall thickening is likely due to underdistention. Surgical clips noted within the pelvis. Prior anastomosis within the hepatic flexure of the colon. Distended and fluid-filled stomach as well as multiple distended and fluid-filled loops of proximal to mid small bowel with a transition point within the deep pelvis likely on image 373. This consistent with a high-grade small bowel obstruction. The majority of the ileal loops are decompressed. IMPRESSION: 1. High-grade small bowel structure with the transition point located within the deep pelvis. This is likely on the basis of adhesions. Surgical consultation advised. 2. Mild bladder wall thickening. 3. Cholelithiasis. ACT 112: Negative or not required by law. Electronically signed by: Brannon Kincaid M.D. 01/03/2022 8:15 AM Code Status & VTE Plan Code Status Full Code - discussed with the patient at bedside Supervising Physician Co-Signing Physician Notes Patient seen and examined independently in the emergency department. Agree with above documentation by Lisette Sidhu PA-C. Patient is a 51-year-old male with past medical history of abdominal surgeries for diverticulitis 10 years back, hernia repair presented with 7 days of intermittent abdominal pain, nausea and vomiting for the last 2 days. He was at [facility] for alcohol rehab for past few weeks. He was planned to be discharged today morning but was brought here due to severe nausea vomiting and abdominal pain. On presentation to the ED, his vitals were stable; he was afebrile. CT abdomen and pelvis showed high-grade small bowel obstruction with transition point located within the deep pelvis. Lab is remarkable for leukocytosis, hemoconcentration, hypercalcemia; likely secondary to dehydration. On examination He is alert oriented x3 in no apparent distress Chestbilateral vesicular breath sound CVSS1-S2 no murmur Abdomensoft, slightly distended, nontender. Bowel sounds hypoactive Neurononfocal Assessment/plan Small bowel obstruction likely secondary to adhesions from previous abdominal surgery Hypercalcemia secondary to dehydration History of alcohol abuse; recently completed rehab History of opioid use disorder Plan; Surgery on board; NG tube for bowel rest. N.p.o. for now. Pain control with Tylenol iv; minimize opioid use - Continue on IV fluids with NS at 125cc/hr - Obtain baseline EKG Daily KUB - Repeat CMP in the evening.
[2022-01-03] MEDS ORDERED: LORazepam 1 MG/1 ML SYR IV ONE (10:36)
[2022-01-03] MEDS ORDERED: LORazepam 1 MG/1 ML SYR IV STA (12:41)
[2022-01-03] MEDS ORDERED: BUPRENORPHINE/NALOXONE 8/2 MG TAB SL ONE (12:41)
[2022-01-03] MEDS ORDERED: NICOTINE 21 MG/24 HR TDSY TD ONE (12:59)
[2022-01-03] MEDS ORDERED: NICOTINE 21 MG/24 HR TDSY TD SCH (13:35)
[2022-01-03] MEDS ORDERED: ONDANSETRON INJ 2 MG/ML 2 ML VIAL IV PRN (13:53)
--- NOTE | 2022-01-03 17:39 | XRay Report ---
XR KUB/Abdomen 1 view CLINICAL HISTORY: Assess SBO TECHNIQUE: 1 view of the abdomen was obtained. Comparison: Comparison is made to CT abdomen pelvis 01/03/2022 FINDINGS: Lung bases are unremarkable. Degenerative changes are seen in the visualized skeleton. Multiple marke dly gas distended loops of small bowel are seen. The colon is decompressed. IMPRESSION: Findings compatible with small bowel obstruction as seen on CT abdomen pelvis. ACT 112: Negative or not required by law. Electronically signed by: Ganga Sandoval M.D. 01/03/2022 5:38 PM
[2022-01-03 19:55] LABS: Albumin Globulin Ratio 1.8 (0.9-2); Albumin Level 4.4 gm/dl (3.4-5.0); BUN Creatinine Ratio 22.8 (10-20); Bilirubin,Total 0.7 mg/dl (0.2-1.0); Calcium 9.8 mg/dl (8.5-10.1); Creatinine Clr Calc Pharmacy 72.5 ml/min; Est GFR (African American) 77.7 ml/min; Est GFR (Non-African American) 67.1 ml/min; Globulin 2.5 gm/dl (2.5-4.0); Potassium 4.3 mmol/L (3.5-5.1); Total Protein 6.9 gm/dl (6.0-8.3)
[2022-01-03] MEDS: diphenhydrAMINE 50 MG/ML VIAL IV PRN (20:00)
[2022-01-03] MEDS ORDERED: LORazepam 1 MG TAB SL STA (20:48)
[2022-01-04] MEDS: SODIUM CHLORIDE 0.9% 1000ML 1,000 ML IV SCH ×4 (00:22→17:51)
[2022-01-04] MEDS: ACETAMINOPHEN 1,000 MG/100 ML VIAL IV PRN ×3 (02:57→22:02)
[2022-01-04] MEDS ORDERED: LORazepam 0.5 MG TAB SL STA ×2 (03:04→03:31)
[2022-01-04 07:30] LABS: Hematocrit (blood only) 38.2 % (40.1-51.0); Hemoglobin 12.5 g/dl (14.0-18.0); Mean Corpuscular Hemoglobin 22.6 pg (25.0-34.0); Mean Corpuscular Hgb Conc 32.7 g/dL (32.0-36.0); Platelet Count 176 K/uL (130-400); RDW Standard Deviation 38.8 fL (36.4-46.3); Red Blood Count 5.54 M/uL (4.63-6.08); White Blood Count 8.02 K/ul (4.8-10.8)
[2022-01-04 07:34] LABS: Albumin Globulin Ratio 1.8 (0.9-2); Albumin Level 4.2 gm/dl (3.4-5.0); BUN Creatinine Ratio 28.7 (10-20); Bilirubin,Total 0.7 mg/dl (0.2-1.0); Calcium 9.3 mg/dl (8.5-10.1); Creatinine Clr Calc Pharmacy 82.6 ml/min; Est GFR (Non-African American) 78.5 ml/min; Globulin 2.3 gm/dl (2.5-4.0); Potassium 4.5 mmol/L (3.5-5.1); Total Protein 6.5 gm/dl (6.0-8.3)
[2022-01-04] MEDS: BUPRENORPHINE/NALOXONE 8/2 MG TAB SL SCH (08:54)
[2022-01-04] MEDS: NICOTINE 21 MG/24 HR TDSY TD SCH (09:44)
[2022-01-04] MEDS ORDERED: ALPRAZolam 0.25 MG TABLET PO STA (09:49)
[2022-01-04] MEDS ORDERED: LORazepam 0.5 MG in SYRINGE 0 ML IV PRN (10:12)
--- NOTE | 2022-01-04 11:24 | Hospitalist Progress Note ---
Date of Service January 04, 2022 Assessment & Plan (1) SBO (small bowel obstruction): Plan: This is a 51-year-old M with PMHx of alcohol abuse, depression, opioid dependence, MDD, substance use disorder with cocaine on Suboxone, hypertension, DM type II who presented from [facility] alcohol rehab program with N/V and found to have SBO. History of partial removal of the colon secondary to diverticulitis with abscess about 12+ years ago by surgeon in the [place] region Consulted general surgery: No plans for surgical intervention at this time, strict NPO, NG tube in place Appears better hydrated this AM clinically and per lab work. Decreasing rate of IV fluids (2) MDD (major depressive disorder): (3) Alcohol abuse, in remission: (4) Opioid dependence on agonist therapy: Plan: Resume acaprosate calc 333 mg, chemix po 2 cap QHS, buspar 5 mg PO TID, WHEN ALLOWED PO MEDS Pharmacy to assist with Suboxone treatment, 8-2 mg film - will transition to sublingual tablet while here (5) HTN (hypertension): Plan: Takes metoprolol succinate 50 mg daily at home - converted to IV medication while NPO DVT ppx: teds, scds Follows with [facility] in [place] CODE: Full code Admission and Anticipated Discharge Date Admission Date: January 03, 2022 Supervising Physician Co-Signing Physician Notes Seen and examined independently. Agree with above documentation by Mary Ann Rodas PA-C Patient is lying in the bed comfortably; he continues to have significant NG output which is dark in color. He reports that abdominal pain has improved compared to yesterday. He no longer complains of nausea. He has not passed gas. On examination He is alert oriented x3 in no apparent distress Chestbilateral vesicular breath sound CVSS1-S2 no murmur Abdomensoft, distention improved. Nontender. Neurononfocal Assessment/plan Small bowel obstruction likely secondary to adhesions from previous abdominal surgery Hypercalcemia secondary to dehydration, resolved History of alcohol abuse; recently completed rehab History of opioid use disorder HTN Plan: -Continue conservative management as per surgery; NG tube to low intermittent suction. N.p.o. for now. -Pain control with IV Tylenol; continue IV fluids. -Daily KUB. -Hydralazine as needed for hypertension if SBP is greater than 160 -Ativan as needed ordered given patient history of anxiety. Subjective Patient seen and examined in 305. Patient still feeling uncomfortable with hiccups and sore throat. Feels extremely anxious. Is not passing flatus at this point. Lower abdomen is tender but denies any nausea or vomiting. No fever, chills or lightheadedness. No chest pain shortness of breath. Urinating without issue. Review of Systems Review of Systems: All systems reviewed & are unremarkable except as noted in Subjective Physical Exam Physical Exam: Gen: WD/WN, NAD, sitting in bed, A&Ox3, + NG tube in place with intermittent suction, green/brown output HEENT: Normocephalic, atraumatic, conjunctivae moist, sclerae anicteric, mucous membranes moist Lung: Clear to Auscultation bilaterally, no wheezes/rales/rhonchi Heart: Regular rate, regular rhythm, no murmurs, rubs, or gallops Abdomen: Soft, mild TTP lower abdomen, ND, +hypoactive bowel sounds Extremities: no edema Skin: Warm, no rash Results & Data Results & Data ([facility]) Vital Signs (Past 12 Hours) Vital Signs Temp Pulse Resp BP Pulse Ox 01/04/22 07:41 37 C 74 18 155/89 H 97 Laboratory Results Short CBC 01/04/22 Range/Units 06:43 WBC 8.02 (4.8-10.8) K/ul Hgb 12.5 L D (14.0-18.0) g/dl Hct 38.2 L (40.1-51.0) % Plt Count 176 (130-400) K/uL BMP 01/03/22 01/04/22 18:16 06:43 Sodium 138 139 Potassium 4.3 4.5 Chloride 101 103 Carbon Dioxide 27 30 BUN 28 H 31 H Creatinine 1.23 1.08 Glucose 120 H 104 H Calcium 9.8 D 9.3 Liver Function 01/03/22 01/04/22 Range/Units 18:16 06:43 Total Bilirubin 0.7 0.7 (0.2-1.0) mg/dl AST 14 13 (13-39) U/L ALT 9 8 (7-52) U/L Alkaline Phosphatase 28 L 26 L (34-104) U/L Albumin 4.4 4.2 (3.4-5.0) gm/dl Diagnostic Findings Abdomen/Pelvis CT 01/03/22 04:[address] WITHOUT CONTRAST CT DOSE: 882.06 mGy.cm HISTORY: Mid abdominal pain. TECHNIQUE: Multiaxial CT images of the abdomen and pelvis were performed without contrast. A dose lowering technique was utilized adhering to the principles of ALARA. COMPARISON STUDY: None. FINDINGS: No pneumoperitoneum. No pneumatosis. There are 2 small fat-containing ventral hernias. There is a 1.4 cm hypodense lesion within the right hepatic lobe. This is incompletely characterized on this noncontrast study but favors a cyst. There is a punctate gallstone. No gallbladder wall thickening. The unenhanced spleen, pancreas, and adrenal glands are unremarkable. No renal or ureteral stones. No hydronephrosis. No retroperitoneal lymphadenopathy. Normal caliber abdominal aorta. Trace pelvic free fluid. Mild bladder wall thickening is likely due to underdistention. Surgical clips noted within the pelvis. Prior anastomosis within the hepatic flexure of the colon. Distended and fluid-filled stomach as well as multiple distended and fluid-filled loops of proximal to mid small bowel with a transition point within the deep pelvis likely on image 373. This consistent with a high-grade small bowel obstruction. The majority of the ileal loops are decompressed. IMPRESSION: 1. High-grade small bowel structure with the transition point located within the deep pelvis. This is likely on the basis of adhesions. Surgical consultation advised. 2. Mild bladder wall thickening. 3. Cholelithiasis. ACT 112: Negative or not required by law. Electronically signed by: Brannon Kincaid M.D. 01/03/2022 8:15 AM KUB X-Ray 01/03/22 11:12 XR KUB/Abdomen 1 view CLINICAL HISTORY: Assess SBO TECHNIQUE: 1 view of the abdomen was obtained. Comparison: Comparison is made to CT abdomen pelvis 01/03/2022 FINDINGS: Lung bases are unremarkable. Degenerative changes are seen in the visualized skeleton. Multiple markedly gas distended loops of small bowel are seen. The colon is decompressed. IMPRESSION: Findings compatible with small bowel obstruction as seen on CT abdomen pelvis. ACT 112: Negative or not required by law. Electronically signed by: Ganga Sandoval M.D. 01/03/2022 5:38 PM
[2022-01-04] MEDS: CHLORASEPTIC 1.4% SOLN 180 ML BTL MT PRN ×3 (11:34→22:11)
--- NOTE | 2022-01-04 12:19 | Surgery Progress Note ---
Date of Service January 04, 2022 Assessment & Plan (1) SBO (small bowel obstruction): Plan: continue NG XR appears similar but clinically some improvement seen with Dr. George Admission and Anticipated Discharge Date Admission Date: January 03, 2022 Supervising Physician Co-Signing Physician Notes Patient seen and examined, labs and image reviewed, agree with above. History of multiple abdominal surgeries admitted with small bowel obstruction. Clinically feels a little better, his biggest complaint is the tube and headache. No flatus, but feels less pain. On exam he is afebrile stable vitals. His abdomen is soft, moderately distended but slightly improved from yesterday. Nontender. KUB reviewed and looks similar to yesterday but clinically appears to be improving. We will continue with NG tube, no surgical intervention at this time, call with questions or concerns. Subjective less pain and bloating, no flatus, NG irritating Physical Exam Gastrointestinal (Abdomen): Inspection/Auscultation: + abdomen distended (less) Percussion/Palpation: + abdomen tender (minimal) and abdomen soft NG 250 Results & Data ([facility]) Vital Signs (Past 12 Hours) Vital Signs Temp Pulse Resp BP Pulse Ox 01/04/22 07:41 37 C 74 18 155/89 H 97 PG Care Time/CCT Total # of Minutes Spent Total Time Spent with Patient: Total time spent is greater than 50% in coordination of care (as documented) at patient's floor/unit and/or counseling patient: Coding Level of Care Code 60557 Subseq Hosp Care Lvl 1 Diagnoses SBO (small bowel obstruction) K56.609
[2022-01-04] MEDS ORDERED: LORazepam 0.25 MG in SYRINGE 0 ML IV PRN (12:31)
--- NOTE | 2022-01-04 15:09 | XRay Report ---
XR KUB/Abdomen 1 view CLINICAL HISTORY: Follow up on SBO TECHNIQUE: 1 view of the abdomen was obtained. Comparison: Comparison is made to abdomen radiograph 01/03/2022 FINDINGS: Cholecystomy clips are seen in the right upper quadrant. Degenerative changes are seen in the visuali zed skeleton. Multiple dilated loops of small bowel are again seen, overall unchanged from prior exam . Small stool burden is seen in the ascending colon. IMPRESSION: Redemonstration of multiple dilated loops of small bowel, approximately unchanged from prior exam. A small amount of stool in the cecum is seen, more conspicuous than on prior exam. ACT 112: Negative or not required by law. Electronically signed by: Ganga Sandoval M.D. 01/04/2022 3:08 PM
[2022-01-04] MEDS: LORazepam 0.25 MG in SYRINGE 0 ML IV PRN ×2 (16:45→22:33)
[2022-01-04 17:13] LABS: Hematocrit (blood only) 35.1 % (40.1-51.0); Hemoglobin 11.6 g/dl (14.0-18.0)
[2022-01-04] MEDS: PANTOprazole 40 MG in SYRINGE 0 ML IV SCH (22:01)
[2022-01-04] MEDS: hydrALAZINE HCL 20 MG/ML VIAL IV PRN (22:08)
[2022-01-05] MEDS: SODIUM CHLORIDE 0.9% 1000ML 1,000 ML IV SCH ×2 (04:48→21:17)
[2022-01-05] MEDS: ACETAMINOPHEN 1,000 MG/100 ML VIAL IV PRN ×2 (07:43→16:06)
[2022-01-05 08:14] LABS: Hematocrit (blood only) 35.3 % (40.1-51.0); Hemoglobin 11.3 g/dl (14.0-18.0); Mean Corpuscular Hemoglobin 22.6 pg (25.0-34.0); Mean Corpuscular Volume 70.5 fL (80.0-100.0); RDW Coefficient of Variation 15.8 % (11.5-14.5); RDW Standard Deviation 39.5 fL (36.4-46.3); Red Blood Count 5.01 M/uL (4.63-6.08); White Blood Count 8.93 K/ul (4.8-10.8)
[2022-01-05 08:21] LABS: Platelet Count 141 K/uL (130-400)
[2022-01-05] MEDS: NICOTINE 21 MG/24 HR TDSY TD SCH (08:43)
[2022-01-05] MEDS: BUPRENORPHINE/NALOXONE 8/2 MG TAB SL SCH (08:43)
[2022-01-05] MEDS: PANTOprazole 40 MG in SYRINGE 0 ML IV SCH ×2 (08:44→20:45)
[2022-01-05 09:30] LABS: BUN Creatinine Ratio 26.2 (10-20); Calcium 8.3 mg/dl (8.5-10.1); Creatinine Clr Calc Pharmacy 106.2 ml/min; Est GFR (African American) 116.7 ml/min; Est GFR (Non-African American) 100.7 ml/min; Potassium 4.1 mmol/L (3.5-5.1)
[2022-01-05] MEDS: LORazepam 0.25 MG in SYRINGE 0 ML IV PRN ×4 (09:37→22:31)
--- NOTE | 2022-01-05 10:13 | XRay Report ---
KUB CLINICAL HISTORY: Follow up on SBO COMPARISON STUDY: CT of the abdomen and pelvis January 03, 2022. KUB January 04, 2022. FINDINGS: Multiple loops of dilated small bowel are noted. These measure up to 5.9 cm in caliber. Sma ll bowel dilatation has progressed. Surgical kaelyn and bowel anastomoses are noted. There is a pauc ity of gas within the rectum and colon. Tip of nasogastric tube is within the gastric fundus. IMPRESSION: Increase in small bowel dilatation. The findings suggest a progressive small bowel obstr uction. ACT 112: Negative or not required by law. Electronically signed by: Son Sanchez M.D. 01/05/2022 10:11 AM
--- NOTE | 2022-01-05 12:28 | Surgery Progress Note ---
Date of Service January 05, 2022 Assessment & Plan (1) SBO (small bowel obstruction): Plan: 51-year-old male with small bowel obstruction, he did have some return of bowel function but his KUB looks a little worse today. We will clamp his NG tube and if he tolerates this and has low residuals after 4 hours it can be removed and he can be advanced to clear liquids. I did advise him to take it slow and if he had any symptoms we should keep the NG tube in as he had such a hard time with placement. Clamp NG tube, recheck in 4 hours, if no pain or nausea and low residuals may remove May advance to clear liquids if it is removed If not removed, then hooked back to low intermittent wall suction and repeat KUB in the morning Dr. Mack covering over the weekend Admission and Anticipated Discharge Date Admission Date: January 03, 2022 Subjective 51-year-old male admitted with small bowel obstruction. He had a bowel movement this morning and has passed some gas. His abdomen is still little sore but feeling much better. Not much has been coming out of his NG tube. Physical Exam Constitutional: WD/WN, vitals as above Gastrointestinal (Abdomen): Percussion/Palpation: + abdomen tender (Mildly tender to palpation lower abdomen) and abdomen soft; no guarding and abdomen not rigid Results & Data ([facility]) Vital Signs (Past 12 Hours) Vital Signs Temp Pulse Resp BP Pulse Ox O2 Del Method 01/05/22 07:26 36.7 C 62 18 150/88 H 97 Room Air Diagnostic Findings KUB with slight progression of distended bowel PG Care Time/CCT Total # of Minutes Spent Total Time Spent with Patient: Total time spent is greater than 50% in coordination of care (as documented) at patient's floor/unit and/or counseling patient: Coding Level of Care Code None Diagnoses SBO (small bowel obstruction) K56.609
--- NOTE | 2022-01-05 13:51 | Hospitalist Progress Note ---
Date of Service January 05, 2022 Assessment & Plan (1) SBO (small bowel obstruction): Plan: This is a 51-year-old M with PMHx of alcohol abuse, depression, opioid dependence, MDD, substance use disorder with cocaine on Suboxone, hypertension, DM type II who presented from [facility] alcohol rehab program with N/V and found to have SBO. History of partial removal of the colon secondary to diverticulitis with abscess about 12+ years ago by surgeon in the [place] region Consulted general surgery: No plans for surgical intervention at this time,NG tube in place Per surgery today, clamping NG tube and if tolerated with low residuals it can be removed and patient advanced to clear liquids. If not removed, then hooked back to low intermittent wall suction and repeat KUB in the morning Advised to take it slow due to difficult NG tube placement initially Repeat KUB tomorrow AM Clinically improved, lab work reassuring (2) MDD (major depressive disorder): (3) Alcohol abuse, in remission: (4) Opioid dependence on agonist therapy: Plan: Resume acaprosate calc 333 mg, chemix po 2 cap QHS, buspar 5 mg PO TID, WHEN ALLOWED PO MEDS Pharmacy to assist with Suboxone treatment, 8-2 mg film - will transition to sublingual tablet while here (5) HTN (hypertension): Plan: Takes metoprolol succinate 50 mg daily at home -as needed hydralazine for now DVT ppx: [facility] [place] Follows with [facility] in [place] CODE: Full code Admission and Anticipated Discharge Date Admission Date: January 03, 2022 Supervising Physician Co-Signing Physician Notes Seen and examined independently. Agree with above documentation by Mary Ann Rodas PA-C Seen lying in the bed comfortably; not in distress. He had a bowel movement today. No nausea or vomiting. NG output has decreased overall as well. On examination He is alert oriented x3 in no apparent distress Chestbilateral vesicular breath sound CVSS1-S2 no murmur Abdomensoft, distention improved. Nontender. Neurononfocal Assessment/plan Small bowel obstruction likely secondary to adhesions from previous abdominal surgery Hypercalcemia secondary to dehydration, resolved History of alcohol abuse; recently completed rehab History of opioid use disorder HTN Plan: -Due to decreased NG tube output; NG tube to be clamped for 4 hours. If no pain a and minimal residual; NG tube to be taken out and patient to be started on clear liquid diet. -Pain control with IV Tylenol; continue IV fluids. -Daily KUB. -Hydralazine as needed for hypertension if SBP is greater than 160 -Ativan as needed ordered given patient history of anxiety. Subjective Patient seen and examined in 305. Feeling much more comfortable today. Had a bowel movement. Still with some abdominal discomfort but less painful. Less anxious. No fever, chills or lightheadedness. No chest pain or shortness of breath. Urinating without issue. Review of Systems Review of Systems: All systems reviewed & are unremarkable except as noted in Subjective At least ten systems reviewed and negative except as noted in the HPI. Physical Exam Physical Exam: Gen: WD/WN, NAD, sitting in bed, A&Ox3, + NG tube in place with intermittent suction, green/brown output HEENT: Normocephalic, atraumatic, conjunctivae moist, sclerae anicteric, mucous membranes moist Lung: Clear to Auscultation bilaterally, no wheezes/rales/rhonchi Heart: Regular rate, regular rhythm, no murmurs, rubs, or gallops Abdomen: Soft, mild TTP lower abdomen, ND, +normoactive bowel sounds Extremities: no edema Skin: Warm, no rash Results & Data Results & Data ([facility]) Vital Signs (Past 12 Hours) Vital Signs Temp Pulse Resp BP Pulse Ox O2 Del Method 01/05/22 07:26 36.7 C 62 18 150/88 H 97 Room Air Laboratory Results Short CBC 01/04/22 01/05/22 Range/Units 17:00 07:53 WBC 8.93 (4.8-10.8) K/ul Hgb 11.6 L 11.3 L (14.0-18.0) g/dl Hct 35.1 L 35.3 L (40.1-51.0) % Plt Count 141 (130-400) K/uL BMP 01/05/22 07:53 Sodium 140 Potassium 4.1 Chloride 108 H Carbon Dioxide 27 BUN 22 Creatinine 0.84 Glucose 77 Calcium 8.3 L Diagnostic Findings Abdomen/Pelvis CT 01/03/22 04:[address] WITHOUT CONTRAST CT DOSE: 882.06 mGy.cm HISTORY: Mid abdominal pain. TECHNIQUE: Multiaxial CT images of the abdomen and pelvis were performed without contrast. A dose lowering technique was utilized adhering to the principles of ALARA. COMPARISON STUDY: None. FINDINGS: No pneumoperitoneum. No pneumatosis. There are 2 small fat-containing ventral hernias. There is a 1.4 cm hypodense lesion within the right hepatic lobe. This is incompletely characterized on this noncontrast study but favors a cyst. There is a punctate gallstone. No gallbladder wall thickening. The unenhanced spleen, pancreas, and adrenal glands are unremarkable. No renal or ureteral stones. No hydronephrosis. No retroperitoneal lymphadenopathy. Normal caliber abdominal aorta. Trace pelvic free fluid. Mild bladder wall thickening is likely due to underdistention. Surgical clips noted within the pelvis. Prior anastomosis within the hepatic flexure of the colon. Distended and fluid-filled stomach as well as multiple distended and fluid-filled loops of proximal to mid small bowel with a transition point within the deep pelvis likely on image 373. This consistent with a high-grade small bowel obstruction. The majority of the ileal loops are decompressed. IMPRESSION: 1. High-grade small bowel structure with the transition point located within the deep pelvis. This is likely on the basis of adhesions. Surgical consultation adv ised. 2. Mild bladder wall thickening. 3. Cholelithiasis. ACT 112: Negative or not required by law. Electronically signed by: Brannon Kincaid M.D. 01/03/2022 8:15 AM KUB X-Ray 01/03/22 11:12 XR KUB/Abdomen 1 view CLINICAL HISTORY: Assess SBO TECHNIQUE: 1 view of the abdomen was obtained. Comparison: Comparison is made to CT abdomen pelvis 01/03/2022 FINDINGS: Lung bases are unremarkable. Degenerative changes are seen in the visualized skeleton. Multiple markedly gas distended loops of small bowel are seen. The colon is decompressed. IMPRESSION: Findings compatible with small bowel obstruction as seen on CT abdomen pelvis. ACT 112: Negative or not required by law. Electronically signed by: Ganga Sandoval M.D. 01/03/2022 5:38 PM KUB X-Ray 01/04/22 07:33 XR KUB/Abdomen 1 view CLINICAL HISTORY: Follow up on SBO TECHNIQUE: 1 view of the abdomen was obtained. Comparison: Comparison is made to abdomen radiograph 01/03/2022 FINDINGS: Cholecystomy clips are seen in the right upper quadrant. Degenerative changes are seen in the visualized skeleton. Multiple dilated loops of small bowel are again seen, overall unchanged from prior exam. Small stool burden is seen in the ascending colon. IMPRESSION: Redemonstration of multiple dilated loops of small bowel, approximately unchanged from prior exam. A small amount of stool in the cecum is seen, more conspicuous than on prior exam. ACT 112: Negative or not required by law. Electronically signed by: Ganga Sandoval M.D. 01/04/2022 3:08 PM KUB X-Ray 01/05/22 06:13 KUB CLINICAL HISTORY: Follow up on SBO COMPARISON STUDY: CT of the abdomen and pelvis January 03, 2022. KUB January 04, 2022. FINDINGS: Multiple loops of dilated small bowel are noted. These measure up to 5.9 cm in caliber. Small bowel dilatation has progressed. Surgical kaelyn and bowel anastomoses are noted. There is a paucity of gas within the rectum and colon. Tip of nasogastric tube is within the gastric fundus. IMPRESSION: Increase in small bowel dilatation. The findings suggest a progressive small bowel obstruction. ACT 112: Negative or not required by law. Electronically signed by: Son Sanchez M.D. 01/05/2022 10:11 AM
[2022-01-05] MEDS: hydrALAZINE HCL 20 MG/ML VIAL IV PRN (15:13)
[2022-01-05] MEDS: CHLORASEPTIC 1.4% SOLN 180 ML BTL MT PRN (16:50)
[2022-01-06 06:38] LABS: Hematocrit (blood only) 34.1 % (40.1-51.0); Hemoglobin 11.2 g/dl (14.0-18.0); Mean Corpuscular Hemoglobin 22.5 pg (25.0-34.0); Mean Corpuscular Hgb Conc 32.8 g/dL (32.0-36.0); Mean Corpuscular Volume 68.6 fL (80.0-100.0); RDW Coefficient of Variation 15.9 % (11.5-14.5); RDW Standard Deviation 38.7 fL (36.4-46.3); Red Blood Count 4.97 M/uL (4.63-6.08); White Blood Count 7.95 K/ul (4.8-10.8)
[2022-01-06 06:44] LABS: Platelet Count 128 K/uL (130-400)
[2022-01-06 06:51] LABS: Calcium 8.4 mg/dl (8.5-10.1); Creatinine Clr Calc Pharmacy 110.2 ml/min; Est GFR (African American) 118.4 ml/min; Est GFR (Non-African American) 102.2 ml/min; Potassium 4.1 mmol/L (3.5-5.1)
[2022-01-06] MEDS: SODIUM CHLORIDE 0.9% 1000ML 1,000 ML IV SCH (07:16)
[2022-01-06] MEDS: PANTOprazole 40 MG in SYRINGE 0 ML IV SCH (08:19)
[2022-01-06] MEDS: NICOTINE 21 MG/24 HR TDSY TD SCH (08:19)
[2022-01-06] MEDS: BUPRENORPHINE/NALOXONE 8/2 MG TAB SL SCH (08:20)
[2022-01-06] MEDS ORDERED: ACETAMINOPHEN 325 MG TAB PO PRN (09:16)
--- NOTE | 2022-01-06 09:21 | XRay Report ---
KUB HISTORY: Small bowel obstruction. Follow-up. COMPARISON: KUB 01/05/2022. FINDINGS: Slight improvement in the dilated loops of small bowel consistent with a small bowel obstru ction. Surgical clips are again seen throughout the abdomen. No renal calculi. No ureteral calculi. No pneumoperitoneum or pneumatosis. IMPRESSION: Slight improvement in the small bowel obstruction pattern. ACT 112: Negative or not required by law. Electronically signed by: Brannon Kincaid M.D. 01/06/2022 9:19 AM
--- NOTE | 2022-01-06 09:36 | Surgery Progress Note ---
Date of Service January 06, 2022 Assessment & Plan (1) SBO (small bowel obstruction): Plan: Patient here with SBO He is clinically feeling better. Tolerated NGT clamp trial yesterday, it was removed and he was started on clears He reports improvement in pain. Denies nausea/vomiting. And he is passing gas/BMs We will advance diet as tolerates to low fiber Likely keep in hospital until tomorrow Pt seen/examined with Dr. Mack Admission and Anticipated Discharge Date Admission Date: January 03, 2022 Subjective Patient says he feels like he is feeling much better. Passing flatus and BM. Tolerating clear liquids. No n/v. Physical Exam Physical Exam: awake/alert Gastrointestinal (Abdomen): Inspection/Auscultation: + abdominal surgical scar; abdomen not distended Percussion/Palpation: abdomen soft; abdomen nontender Results & Data ([facility]) Vital Signs (Past 12 Hours) Vital Signs Temp Pulse Resp BP Pulse Ox O2 Del Method 01/06/22 07:21 37.1 C 58 L 18 152/79 H 98 Room Air 01/05/22 22:42 37.3 C 58 L 17 97 PG Care Time/CCT Total # of Minutes Spent Total Time Spent with Patient: Total time spent is greater than 50% in coordination of care (as documented) at patient's floor/unit and/or counseling patient: Coding Level of Care Code 51189 Subseq Hosp Care Lvl 1 Diagnoses SBO (small bowel obstruction) K56.609
[2022-01-06] MEDS ORDERED: CYPROHEPTADINE HCL 4 MG TAB PO PRN (13:14)
--- NOTE | 2022-01-06 13:19 | Hospitalist Progress Note ---
Date of Service January 06, 2022 Assessment & Plan (1) SBO (small bowel obstruction): Plan: Small bowel obstruction likely secondary to adhesions from previous abdominal surgery Plan; NG tube taken out yesterday; patient able to tolerate liquid diet. Started on low fiber diet as per surgery KUB shows improvement in small bowel distention. (2) MDD (major depressive disorder): (3) Alcohol abuse, in remission: (4) Opioid dependence on agonist therapy: Plan: Resume acaprosate calc 333 mg, chemix po 2 cap QHS, buspar 5 mg PO TID Pharmacy to assist with Suboxone treatment, 8-2 mg film - will transition to sublingual tablet while here (5) HTN (hypertension): Plan: Takes metoprolol succinate 50 mg daily at home . Regume DVT ppx: teds, scds Follows with [facility] in [place] CODE: Full code Dispositiondischarge home tomorrow if he continues to show improvement and able to tolerate diet. Admission and Anticipated Discharge Date Admission Date: January 03, 2022 Subjective Patient seen and examined at bedside. He is comfortably sitting up at the side of the bed; not in distress. He is able to tolerate clear liquid without any issues. He is passing gas. No abdominal pain. Review of Systems Review of Systems: All systems reviewed & are unremarkable except as noted in Subjective Physical Exam Physical Exam: Constitutional: WD/WN, vitals as above, NAD, sitting up in bed, pleasant, conversing easily Respiratory: normal respiratory effort, lungs clear to auscultation, no wheeze, rales, rhonchi. Normal insp/exp effort, no accessory muscle use Cardiovascular: RRR, no murmur, no edema Vessels: no JVD or carotid bruit Chest: normal inspection of chest Abdomen: Soft, nontender, nondistended. Musculoskeletal: no cyanosis or clubbing, extremities motor strength 5/5 Skin: no rashes, warm and dry normal turgor Neurologic: PERRL, EOMI, accommodation nl, no face palsy, no dysarthria CN's II- XI intact bilaterally and moves all extremities Psychiatric: A+Ox3, euthymic affect Lymphatic: no cervical or axillary lymphadenopathy : deferred Results & Data Results & Data ([facility]) Vital Signs (Past 12 Hours) Vital Signs Temp Pulse Resp BP Pulse Ox O2 Del Method 01/06/22 07:21 37.1 C 58 L 18 152/79 H 98 Room Air Laboratory Results Laboratory Results WBC 7.95 K/ul (4.8-10.8) 01/06/22 05:55 RBC 4.97 M/uL (4.63-6.08) 01/06/22 05:55 Hgb 11.2 g/dl (14.0-18.0) L 01/06/22 05:55 Hct 34.1 % (40.1-51.0) L 01/06/22 05:55 MCV 68.6 fL (80.0-100.0) L 01/06/22 05:55 MCH 22.5 pg (25.0-34.0) L 01/06/22 05:55 MCHC 32.8 g/dL (32.0-36.0) 01/06/22 05:55 RDW Std Deviation 38.7 fL (36.4-46.3) 01/06/22 05:55 RDW Coeff of Joey 15.9 % (11.5-14.5) H 01/06/22 05:55 Plt Count 128 K/uL (130-400) L 01/06/22 05:55 Immature Gran % (Auto) 0.6 % 01/03/22 05:12 Neut % (Auto) 87.7 % 01/03/22 05:12 Lymph % (Auto) 8.4 % 01/03/22 05:12 [place] % (Auto) 2.9 % 01/03/22 05:12 Eos % (Auto) 0.1 % 01/03/22 05:12 Baso % (Auto) 0.3 % 01/03/22 05:12 Neut # (Auto) 20.51 K/uL (1.4-6.5) H 01/03/22 05:12 Lymph # (Auto) 1.96 K/uL (1.2-3.4) 01/03/22 05:12 [place] # (Auto) 0.69 K/uL (0.24-0.82) 01/03/22 05:12 Eos # (Auto) 0.03 K/uL (0-0.50) 01/03/22 05:12 Baso # (Auto) 0.07 K/uL (0-0.2) 01/03/22 05:12 Immature Gran # (Auto) 0.13 K/uL (0.00-0.02) H 01/03/22 05:12 Microcytosis Present 01/03/22 05:12 Ovalocytes 2+ 01/03/22 05:12 Echinocytes 1+ 01/03/22 05:12 Sodium 140 mmol/L (136-145) 01/06/22 05:55 Potassium 4.1 mmol/L (3.5-5.1) 01/06/22 05:55 Chloride 108 mmol/L (98-107) H 01/06/22 05:55 Carbon Dioxide 26 mmol/L (21-32) 01/06/22 05:55 Anion Gap 6 (3-11) 01/06/22 05:55 BUN 17 mg/dl (6-23) 01/06/22 05:55 Creatinine 0.81 mg/dl (0.6-1.4) 01/06/22 05:55 Est Cr Clr Drug Dosing 110.2 ml/min 01/06/22 05:55 Est GFR ( Amer) 118.4 ml/min 01/06/22 05:55 Est GFR (Non-Af Amer) 102.2 ml/min 01/06/22 05:55 BUN/Creatinine Ratio 21.0 (10-20) H 01/06/22 05:55 Glucose 75 mg/dl (70-99(Fasting)) 01/06/22 05:55 Calcium 8.4 mg/dl (8.5-10.1) L 01/06/22 05:55 Total Bilirubin 0.7 mg/dl (0.2-1.0) 01/04/22 06:43 AST 13 U/L (13-39) 01/04/22 06:43 ALT 8 U/L (7-52) 01/04/22 06:43 Alkaline Phosphatase 26 U/L (34-104) L 01/04/22 06:43 Total Protein 6.5 gm/dl (6.0-8.3) 01/04/22 06:43 Albumin 4.2 gm/dl (3.4-5.0) 01/04/22 06:43 Globulin 2.3 gm/dl (2.5-4.0) L 01/04/22 06:43 Albumin/Globulin Ratio 1.8 (0.9-2) 01/04/22 06:43 Lipase 24 U/L (11-82) 01/03/22 05:12 Urine Color Dark Yellow 01/03/22 07:18 Urine Appearance Clear (Clear) 01/03/22 07:18 Urine pH 5.5 (4.5-7.5) 01/03/22 07:18 Ur Specific [place] 1.043 (1.000-1.030) H 01/03/22 07:18 Urine Protein 1+ (Negative) H 01/03/22 07:18 Urine Glucose (UA) Negative (Negative) 01/03/22 07:18 Urine Ketones 1+ (Negative) H 01/03/22 07:18 Urine Blood Negative (Negative) 01/03/22 07:18 Urine Nitrite Negative (Negative) 01/03/22 07:18 Urine Bilirubin 1+ (Negative) H 01/03/22 07:18 Urine Urobilinogen Negative (Negative) 01/03/22 07:18 Ur Leukocyte Esterase Trace (Negative) H 01/03/22 07:18 Urine WBC (Auto) 5-10 /hpf (0-5) H 01/03/22 07:18 Urine RBC (Auto) 0-4 /hpf (0-4) 01/03/22 07:18 U Hyaline Cast (Auto) >30 /lpf (0-5) H 01/03/22 07:18 U Epithel Cells (Auto) >30 /lpf (0-5) H 01/03/22 07:18 Urine Bacteria (Auto) 1+ (Negative) H 01/03/22 07:18 Ur Renal Epithelial Cell Not Reportable 01/03/22 07:18 Urine Mucus Present (None Prsent) A 01/03/22 07:18 SARS-CoV-2, RNA, NAAT NEGATIVE (NEGATIVE) 01/03/22 Unknown Impressions Abdomen/Pelvis CT 01/03/22 04:[address] WITHOUT CONTRAST CT DOSE: 882.06 mGy.cm HISTORY: Mid abdominal pain. TECHNIQUE: Multiaxial CT images of the abdomen and pelvis were performed without contrast. A dose lowering technique was utilized adhering to the principles of ALARA. COMPARISON STUDY: None. FINDINGS: No pneumoperitoneum. No pneumatosis. There are 2 small fat-containing ventral hernias. There is a 1.4 cm hypodense lesion within the right hepatic lobe. This is incompletely characterized on this noncontrast study but favors a cyst. There is a punctate gallstone. No gallbladder wall thickening. The unenhanced spleen, pancreas, and adrenal glands are unremarkable. No renal or ureteral stones. No hydronephrosis. No retroperitoneal lymphadenopathy. Normal caliber abdominal aorta. Trace pelvic free fluid. Mild bladder wall thickening is likely due to underdistention. Surgical clips noted within the pelvis. Prior anastomosis within the hepatic flexure of the colon. Distended and fluid-filled stomach as well as multiple distended and fluid-filled loops of proximal to mid small bowel with a transition point within the deep pelvis likely on image 373. This consistent with a high-grade small bowel obstruction. The majority of the ileal loops are decompressed. IMPRESSION: 1. High-grade small bowel structure with the transition point located within the deep pelvis. This is likely on the basis of adhesions. Surgical consultation advised. 2. Mild bladder wall thickening. 3. Cholelithiasis. ACT 112: Negative or not required by law. Electronically signed by: Brannon Kincaid M.D. 01/03/2022 8:15 AM KUB X-Ray 01/06/22 08:00 KUB HISTORY: Small bowel obstruction. Follow-up. COMPARISON: KUB 01/05/2022. FINDINGS: Slight improvement in the dilated loops of small bowel consistent with a small bowel obstruction. Surgical clips are again seen throughout the abdomen. No renal calculi. No ureteral calculi. No pneumoperitoneum or pneumatosis. IMPRESSION: Slight improvement in the small bowel obstruction pattern. ACT 112: Negative or not required by law. Electronically signed by: Brannon Kincaid M.D. 01/06/2022 9:19 AM
[2022-01-06] MEDS: METOPROLOL SUCC 50MG EXT REL TAB PO SCH (15:27)
[2022-01-06] MEDS: hydrOXYzine HCl 25 MG TAB PO PRN ×2 (16:08→21:56)
[2022-01-06] MEDS ORDERED: traZODone HCL 50 MG TAB PO PRN (16:55)
[2022-01-06] MEDS: diphenhydrAMINE 50 MG/ML VIAL IV PRN (20:04)
[2022-01-06] MEDS ORDERED: traZODone HCL 50 MG TAB PO SCH (21:00)
[2022-01-07] MEDS ORDERED: diphenhydrAMINE 50 MG/ML VIAL IV STA (00:13)
[2022-01-07] MEDS: diphenhydrAMINE 50 MG/ML VIAL IV PRN (00:28)
[2022-01-07 05:58] LABS: Hematocrit (blood only) 32.5 % (40.1-51.0); Hemoglobin 10.7 g/dl (14.0-18.0); Mean Corpuscular Hemoglobin 22.5 pg (25.0-34.0); Mean Corpuscular Hgb Conc 32.9 g/dL (32.0-36.0); Mean Corpuscular Volume 68.4 fL (80.0-100.0); RDW Coefficient of Variation 15.6 % (11.5-14.5); RDW Standard Deviation 38.5 fL (36.4-46.3); Red Blood Count 4.75 M/uL (4.63-6.08); White Blood Count 7.85 K/ul (4.8-10.8)
[2022-01-07 06:03] LABS: Platelet Count 135 K/uL (130-400)
[2022-01-07 06:11] LABS: BUN Creatinine Ratio 17.1 (10-20); Calcium 8.5 mg/dl (8.5-10.1); Creatinine Clr Calc Pharmacy 117.4 ml/min; Est GFR (African American) 121.6 ml/min; Est GFR (Non-African American) 104.9 ml/min; Potassium 3.8 mmol/L (3.5-5.1)
[2022-01-07] MEDS: NICOTINE 21 MG/24 HR TDSY TD SCH (08:47)
[2022-01-07] MEDS: BUPRENORPHINE/NALOXONE 8/2 MG TAB SL SCH (08:47)
[2022-01-07] MEDS: hydrOXYzine HCl 25 MG TAB PO PRN (08:51)
[2022-01-07] MEDS ORDERED: PANTOprazole 40 MG TAB PO SCH (09:00)
[2022-01-07] MEDS ORDERED: LORATADINE 10 MG TAB PO SCH (09:00)
[2022-01-07] MEDS ORDERED: METOPROLOL SUCC 50MG EXT REL TAB PO SCH (09:00)
--- NOTE | 2022-01-07 09:48 | Surgery Progress Note ---
Date of Service January 07, 2022 Assessment & Plan (1) SBO (small bowel obstruction): Plan: PSBO resolved ok for d/c on low fiber diet Pt seen/examined with Dr. Mack Admission and Anticipated Discharge Date Admission Date: January 03, 2022 Subjective tolerating diet, bowels moving Physical Exam Constitutional: WD/WN, vitals as above Gastrointestinal (Abdomen): Inspection/Auscultation: abdomen not distended Percussion/Palpation: abdomen soft; abdomen nontender Results & Data ([facility]) Vital Signs (Past 12 Hours) Vital Signs Temp Pulse Resp BP BP Pulse Ox O2 Del Method 01/07/22 07:31 37.1 C 56 L 20 171/104 H 98 Room Air 01/06/22 22:19 36.9 C 54 L 17 174/99 H 99 Room Air PG Care Time/CCT Total # of Minutes Spent Total Time Spent with Patient: Total time spent is greater than 50% in coordination of care (as documented) at patient's floor/unit and/or counseling patient: Coding Level of Care Code 89989 Subseq Hosp Care Lvl 1 Diagnoses SBO (small bowel obstruction) K56.609
[2022-01-07] MEDS: METOPROLOL SUCC 50MG EXT REL TAB PO SCH (10:43)
[2022-01-07] MEDS ORDERED: traZODone HCL 50 MG TAB PO PRN (10:52)
--- NOTE | 2022-01-07 13:30 | Discharge Summary ---
Date of Service January 07, 2022 Admission HPI Per Admitting Provider This is a 51-year-old M with PMHx of alcohol abuse, depression, opioid dependence, MDD, substance use disorder with cocaine on Suboxone, hypertension, DM type II. He has undergone partial removal of the colon secondary to diverticulitis with abscess about 12+ years ago by surgeon in the [place]. Pt presents with acute new onset abdominal pain which began 5-7 days ago and felt the pain would last for 15 minutes, and then subsided. But then 2 days ago his abdominal pain started being constant, cramping, stabbing in nature. He attempted to walk/move but could not alleviate it. He is currently on Suboxone therapy and was at [facility] for alcohol rehab program for the past 21 days, and was scheduled to be discharged home today. He began throwing up yesterday and has multiple this morning. Emesis appears to be green/brown in nature. Pt is on campril for alcohol cravings/suppression, and this causes gas per his report but states he is no longer passing flatus. Last BM was yesterday morning ago and was normal. Pt was not able to tolerate the first attempt to place an NG tube. He is agreeable to trying again with some sort of sedation. We discussed that he would not be placed under anesthesia and the risks and benefits were discussed with him. Will allow Ativan 1 mg IV to relax him, with the expectation that he is awake enough to help swallow the tube and get it in correct placement in the stomach. Patient is requesting that we call his brother as he is expecting [facility] to be [facility], and does not yet know that he has been admitted as [facility] Admission Exam Per Admitting Provider General: awake, alert, no apparent distress Head: Normocephalic, atraumatic ENT: PERRL, EOMI, no pharyngeal exudate, mucous membranes moist Chest: Clear to auscultation, on room air, no adventitious breath sounds Cardiac: Regular rate and rhythm, no murmur, no JVD, normal peripheral pulses, good capillary refill Abdominal: NABS x 4 quadrants, soft, nondistended, nontender to palpation, no rebound or guarding Extremities: Normal inspection, no peripheral edema or erythema, calfs nontender to palpation Psych: Normal mood and affect Neuro: AAO x 3, strength intact bilaterally and rated 5/5, no motor deficits, speech is clear, no peripheral sensory deficits Principal Diagnosis Small bowel obstruction secondary to adhesions from previous bowel surgery Discharge Exam Constitutional: WD/WN, vitals as above, NAD, sitting up in bed, pleasant, conversing easily Respiratory: normal respiratory effort, lungs clear to auscultation, no wheeze, rales, rhonchi. Normal insp/exp effort, no accessory muscle use Cardiovascular: RRR, no murmur, no edema Vessels: no JVD or carotid bruit Chest: normal inspection of chest Abdomen: Soft, nontender, nondistended. Musculoskeletal: no cyanosis or clubbing, extremities motor strength 5/5 Skin: no rashes, warm and dry normal turgor Neurologic: PERRL, EOMI, accommodation nl, no face palsy, no dysarthria CN's II- XI intact bilaterally and moves all extremities Psychiatric: A+Ox3, euthymic affect Lymphatic: no cervical or axillary lymphadenopathy : deferred Discharge Data Allergies Allergy/AdvReac Type Severity Reaction Status Date / Time No Known Allergies Allergy Unverified 01/03/22 10:29 Consultations 01/03/22 10:57 ED Decision to Admit Stat 01/03/22 13:53 Consult General Surgery Routine Ordered Studies 01/03/22 04:57 CT abd pelvis wo con Urgent Hospital Course (1) SBO (small bowel obstruction): (2) MDD (major depressive disorder): (3) Alcohol abuse, in remission: (4) Opioid dependence on agonist therapy: (5) HTN (hypertension): Plan Patient is a 51-year-old male with past medical history of abdominal surgeries for diverticulitis 10 years back, hernia repair presented with 7 days of intermittent abdominal pain, nausea and vomiting for the last 2 days. On prese ntation to the ED, his vitals were stable; he was afebrile. CT abdomen and pelvis showed high-grade small bowel obstruction with transition point located within the deep pelvis. Lab is remarkable for leukocytosis, hemoconcentration, hypercalcemia; likely secondary to dehydration. Patient was admitted to medical floor; surgery were consulted. Conservative management with NG decompression, bowel rest, antiemetic and IV fluids was done. Over the course of the hospitalization, patient's symptom improved. NG tube was clamped and taken out. Patient had bowel movement and tolerated diet well. Patient was discharged with instruction to continue low fiber diet. He was instructed to follow-up with his primary care doctor and arrange for colonoscopy given he is a small bowel obstruction and anemia. Patient verbalized understanding and was agreeable with the plan. Patient was stable at the time of discharge. Total Time Total Time Spent Total Time Spent (In Minutes): 35 Total Time Includes: Examination of the Patient, Discharge Planning, Medication Reconciliation, Communication With Other Providers and Other Discharge Plan Discharge Items Patient Disposition: Home - Self-Care Reason For Visit: SBO Discharge Diagnosis: Small bowel obstruction likely secondary to adhesions from previous abdominal surgery Activity: Resume your previous activity Non-emergency contact: Primary Care Provider Call non-emergency contact if: you have any medication questions and your symptoms worsen Follow-up/Referrals: PCP,NO [Primary Care Provider] - Diet: Low Fiber Addtl Attending Provider Instructions: You were admitted to the hospital with small bowel obstruction. Please continue to eat low fiber food. Follow-up with your primary care doctor. You will need need to follow-up and discuss regarding colonoscopy with your primary care doctor. Your hemoglobin is slightly on the lower side. Hemoglobin was 10.7 on discharge. Please continue to take omeprazole once daily. Take all other medications as prescribed. Pending Studies at Discharge: No Stand-Alone Forms: My [facility], Smoking Cessation Medications and DC Order Prescriptions: Continued buspirone 5 mg tablet 5 mg PO TID metoprolol succinate 50 mg tablet extended release 24 hr 50 mg PO DAILY hydroxyzine HCl 50 mg tablet 50 mg PO Q6H PRN (Reason: Itching) cyproheptadine 4 mg tablet 4 mg PO Q6H PRN (Reason: Itching) buprenorphine-naloxone 8-2 mg tablet, sublingual 1 tab SUBLINGUAL DAILY multivitamin Tablet 1 tab PO DAILY omeprazole 20 mg Capsule,Delayed Release(Dr/Ec) 20 mg PO DAILY acamprosate 333 mg tablet,delayed release (DR/EC) 666 mg PO TID loratadine 10 mg Capsule 10 mg PO DAILY melatonin 10 mg Tablet 10 mg PO HS PRN (Reason: Sleep) Discharge Orders: Discharge Order (Routine); Ordered 01/07/22 Ordered By: Cordell Schwartz Admission Data Admit Date/Time: 01/03/22 10:12 Attending Provider: Cordell Schwartz Admrenetta Provider: Cordell Schwartz Primary Care Provider: PCP,NO Other Providers: Cordell Schwartz ; Ole George ; Mary Ann Rodas Other Interventions: Discharge Summary Assessment (RN) Last Done: 01/07/22 10:24
== END 2022-01-07 13:57 | disposition home or self-care (01) | DRG 389 ==
LOC: ED 04:52 → EDINP 10:12 → 3E 13:54